=== PATIENT | male | born 1955 | race Caucasian/White ===

== ENCOUNTER 2017-08-17 11:23 | Outpatient (CLI) | payer OTHER ==
[~2017-08-17] VITALS: Ht 177.8 cm; Wt 102.3 kg
--- NOTE | ~2017-08-17 | HEMODYNAMI ---
PATIENT:CARLINE POPE JR MEDICAL RECORD: [id number] : 53 LOCATION:[facility] ADMISSION DATE: 08/17/17 Generatedon:08/17/201714:35 Patient name: CARLINE POPE Patient #: [id number] SSN: : 1955 Date of study: 08/17/2017 Page: Of Hemodynamic Procedure Report Patient Data Patient Demographics Procedure consent was obtained First Name: CARLINE Gender: Male Last Name: TOSHIA Suffix: [facility] Initial: CARMINE : 1955 Patient #: [id number] Age: 61 year(s) Race: Unknown Additional ID: [id number] Contact details Address: [address] [place] [address] State: [place] City: [facility] Zip code: [address] Past Medical History Allergies: No known allergies Admission Admission Data Admission Date: 08/17/2017 Admission Time: 11:23 Weight (lbs.): 232 Weight (kg.): 105.23 Lab Results Lab Result Date: 08/17/2017 Lab Result Time: 0:00 Biochemistry Name Units Result Min Max BUN mg/dl 15 --(--*-)-- 7 18 Creatinine mg/dl 1.1 --(--*-)-- 0.6 1.3 CBC Name Units Result Min Max Hemoglobin g/dl 13.4 -*(----)-- 13.5 17.5 Procedure Procedure Types Cath Procedure Diagnostic Procedure LHC LHC w/Coronaries Miscellaneous Procedures Moderate Sedation up to 30 minutes Procedure Description Procedure Date Procedure Date: 08/17/2017 Procedure Start Time: 14:16 Procedure End Time: 14:35 Procedure Staff Name Function Clarissa Anaya RT Monitor Amado Mora MD Performing Physician Jacob Brito RT Scrub Jay Calderón RN Nurse Procedure Data Cath Procedure Fluoroscopy Diagnostic fluoroscopy Total fluoroscopy Time: 4.5 time: 4.5 min min Diagnostic fluoroscopy Total fluoroscopy dose: 690 dose: 690 mGy mGy Contrast Material Contrast Material Type Amount (ml) Isovue 300 90 Entry Location Entry Primary Successful Side Size Upsize Upsize Entry Closure Succes sful Closure Location (Fr) 1 (Fr) 2 (Fr) Remarks Device Remarks Femoral Left 5 Fr Exoseal artery Estimated blood loss: 5 ml Diagnostic catheters Device Type Used For End Catheter Placement MULTIPACK JL 4.0 5Fr Procedure catheter DIAGNOSTIC AR MOD 5Fr Procedure Catheter ([id number]) DIAGNOSTIC IMT 5Fr Procedure Catheter ([id number]) MULTIPACK Pigtail 5 Fr Procedure catheter Procedure Complications No complications Procedure Medications Medication Administration Route Dosage 0.9% NaCl I.V. 100 ml/hr Oxygen NC 2 l/min Heparin Flush Bag added to field 2 bags (1000units/500ml NS) Lidocaine 2% added to field 20 Versed I.V. 1 mg Fentanyl I.V. 50 mcg Versed I.V. 1 mg Fentanyl I.V. 50 mcg Hemodynamics Rest HGB: 13.4 (g/dl) Heart Rate: 51 (bpm) Pressure Samples Time Site Value (mmHg) Purpose Heart Use Rate(bpm) 14:29 LV 115/1,8 Snapshot 57 14:29 AO 113/67(89) Pullback 56 14:29 LV 119/-4,11 Pullback 56 Gradients Valve Time Site 1 Site 2 Mean SEP/DFP Peak To Heart Use (mmHg) (sec/min) Peak Rate (mmHg) (bpm) Aortic 14:29 LV AO 9 18 6 56 119/-4,11 113/67(89) Calculations Valve P-P Mean Valve Index Valve Source Name Gradient Area Flow (cm2) Aortic 6 9 6 9 Snapshots Pre Cath Intra NCS Post Cath Vital Signs Time Heart Resp SPO2 etCO2 NIBP (mmHg) Rhythm Pain Sedation Rate (ipm) (%) (mmHg) Status Level (bpm) 13:56:06 52 15 100 35.2 122/78(95) NSR 0 (11) 10(A) , No pain 14:00:49 49 16 100 34.4 114/70(86) NSR 0 (11) 10(A) , No pain 14:05:27 50 16 100 40.5 113/73(91) NSR 0 (11) 10(A) , No pain 14:10:08 50 14 100 36.7 113/73(89) NSR 0 (11) 10(A) , No pain 14:14:49 49 14 99 36.7 118/70(91) NSR 0 (11) 10(A) , No pain 14:19:31 51 19 98 39 111/69(90) NSR 0 (11) 9(A) , No pain 14:24:10 50 19 99 15.2 117/83(109) NSR 0 (11) 9(A) , No pain 14:28:50 58 19 98 10.6 110/77(91) NSR 0 (11) 9(A) , No pain 14:33:29 56 18 99 41.3 112/77(91) NSR 0 (11) 9(A) , No pain Medications Time Medication Route Dose Verified Delivered Reason Notes Effe ctiveness by by 13:57:56 0.9% NaCl I.V. 100 Jay Jay Per ml/hr Kaitlynn Calderón physician RN RN 13:58:09 Oxygen NC 2 Jay Jay Per l/min Kaitlynn Calderón physician RN RN 13:58:22 Heparin Flush added 2 Jay Jay used for Bag to bags Lorigan Lorigan procedure (1000units/500ml field RN RN NS) 13:58:47 Lidocaine 2% added 20ml Jay Jay for local to vial Lorigan Lorigan anesthetic field RN RN 14:11:10 Versed I.V. 1 mg Jay Jay for Lorigan Lorigan sedation RN RN 14:11:21 Fentanyl I.V. 50 Jay Jay for mcg Lorigan Lorigan sedation RN RN 14:16:37 Versed I.V. 1 mg Jay Jay for Lorigan Lorigan sedation RN RN 14:16:44 Fentanyl I.V. 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 Start room use. 13:46:14 Patient Weight : 232 lbs 13:46:48 Time tracking: Regular hours 13:46:53 Plan of Care:Hemodynamics will remain stable., Cardiac rhythm will remain stable., Comfort level will be maintained., Respiratory function will remain adequate., Patient/ family verbilizes understanding of procedure., Procedure tolerated without complication., Recovers from procedure without complications.. 13:47:10 Patient received from Pre/Post Procedure Room to [facility] Alert and oriented. Eyalsferred to table in Supine position. 13:47:11 Warm blankets applied, and lauri hugger turned on for patient comfort. 13:47:11 Correct patient and procedure confirmed by team. 13:47:13 Signed procedure consent form obtained from patient. 13:47:13 ECG and BP/O2 sat monitors applied to patient. 13:47:37 H&P Date Dictated: 07/19/2017 Within 30 days and on chart., H&P Addendum completed by physician on day of procedure. (MUST COMPLETE FOR ALL OUTPATIENTS). 13:55:13 Vital chart was started 13:55:14 Baseline sample Acquired. 13:55:17 Rhythm: sinus bradycardia 13:55:18 Full Disclosure recording started 13:55:19 Pre-procedure instructions explained to patient. 13:55:20 Pre-op teaching completed and patient verbalized understanding. 13:55:21 Family in patients room. 13:55:22 Patient NPO since Midnight. 13:55:30 Patient allergic to No known allergies 13:55:31 Is the patient allergic to Iodine/contrast media? No. 13:55:34 Is patient on blood thinner?No 13:55:36 Patient diabetic? Yes. 13:55:37 If diabetic: On Metformin? Yes 13:55:39 If on Metformin: Last Dose? 08/15/2017 13:55:43 Previous problem with sedation/anesthesia? No ? 13:55:44 Snore? Yes 13:55:45 Sleep apnea? Yes 13:55:46 Deviated septum? No 13:55:47 Opens mouth fully? Yes 13:55:47 Sticks out tongue? Yes 13:55:50 Airway obstruction? No ? 13:55:54 Dentures? Yes IN TIGHT 13:55:58 Pre procedure: left dorsailis pedis pulse 2+ Normal; easily identifiable; not easily obliterated 13:56:02 Patient pain scale 0/10 ?. 13:56:16 IV patent on arrival in left forearm with 0.9% NaCl at [facility]. 13:56:22 Left groin area was prepped with chlora-prep and draped in sterile fashion 13:56:23 Alarms reviewed by R. N. 13:56:24 Sharps counted by scrub and verified by R.N. 13:57:56 0.9% NaCl 100 ml/hr I.V. was administered by Jay Calderón RN; Per physician; 13:58:09 Oxygen 2 l/min NC was administered by Jay Calderón RN; Per physician; 13:58:22 Heparin Flush Bag (1000units/500ml NS) 2 bags added to field was administered by Jay Calderón RN; used for procedure; 13:58:47 Lidocaine 2% 20ml vial added to field was administered by Jay Calderón RN; for local anesthetic; 14::57 --------ALL STOP TIME OUT------ :57 Final Timeout: patient, procedure, and site verified with staff and physician. All members of the team are in agreement. 14:08:59 Left groin site verified by team. 14:09:02 Physical assessment completed. ASA score P 2 - A patient with mild systemic disease as per Amado Mora MD. 14:09:05 Sedation plan: IV Moderate Sedation Medication:Versed, Fentanyl 14:09:37 Use device set Femoral Dx 14:09:38 ACIST Syringe (18548) opened to sterile field. 14:09:40 Bag Decanter (2002S) opened to sterile field. 14:09:41 ACIST Hand Control (85251) opened to sterile field. 14:09:41 ACIST Manifold (10661) opened to sterile field. 14:09:42 Tegaderm 4 x 4 (1626W) opened to sterile field. 14:09:44 Medline Cath Pack ([id number]) opened to sterile field. 14:09:45 SHEATH 5FR [place] (LHZ281) opened to sterile field. 14:09:45 DIAGNOSTIC WIRE .035 260cm J wire (426525) opened to sterile field. 14:09:47 DIAGNOSTIC Multipack 5Fr catheter set (MY6480) opened to sterile field. 14:09:47 PERCUTANEOUS ENTRY 19GA needle opened to sterile field. 14:11:10 Versed 1 mg I.V. was administered by Jay Calderón RN; for sedation; 14:11:21 Fentanyl 50 mcg I.V. was administered by Jay Calderón RN; for sedation; 14:15:22 Lab Result : BUN 15 mg/dl 14:15:22 Lab Result : Creatinine 1.1 mg/dl 14:15:22 Lab Result : Hemoglobin 13.4 g/dl 14:15:28 Lab results completed and on chart. 14:16:37 Versed 1 mg I.V. was administered by Jay Calderón RN; for sedation; 14:16:44 Fentanyl 50 mcg I.V. was administered by Jay Calderón RN; for sedation; 14:16:54 Procedure started. 14:16:58 Local anesthetic to left femerol artery with Lidocaine 2% by Amado Mora MD.INITIAL ACCESS ONLY 14:17:00 Zero performed for pressure channel P1 14:18:43 A 5 Fr sheath was inserted into the Left Femoral artery 14:19:10 A MULTIPACK JL 4.0 5Fr catheter was advanced over the wire and used for Procedure. 14:19:57 LCA angiography performed. 14:20:59 Catheter removed. 14:21:54 A DIAGNOSTIC AR MOD 5Fr Catheter ([id number]) was advanced over the wire and used for Procedure. 14:22:54 SVG to OM1 and OM2 angiography performed 14:23:16 RCA angiography performed. 14:23:28 Catheter removed. 14:24:22 A DIAGNOSTIC IMT 5Fr Catheter ([id number]) was advanced over the wire and used for Procedure. 14:27:13 KAUR to LAD angiography performed. 14:27:35 Catheter removed. 14:28:08 A MULTIPACK Pigtail 5 Fr catheter was advanced over the wire and used for Procedure. 14:28:48 LV gram done using BUCKNER 14:28:51 Injector settings: Ml/sec: 10, Volume: 20, 14:29:55 EF : 55 % 14:29:56 LV hemodynamics recorded. 14:31:08 Abdominal angiogram w/ runoff was performed. 14:31:17 Catheter removed. 14:31:20 EXOSEAL 5Fr (EX500) opened to sterile field. 14:31:34 Sheath removed intact; hemostasis achieved with Exoseal to the Left Femoral artery. 14:31:38 Procedure ended.(Physican Out) 14::48 Fluoroscopy time 04.50 minutes. 14::52 Fluoroscopy dose: 690 mGy 14:31:52 Flurop Dose total: 690 14:31:56 Contrast amount:Isovue 300 90ml. 14:34:06 Procedure and supply charges have been captured, reviewed, submitted and are correct. 14:34:08 Insertion/operative site no bleeding no hematoma. 14:34:10 Post-op/insertion site Right Femoral artery dressed using a 4 x 4 and Tegaderm. 14:34:15 Post right femoral artery:stable, soft, clean and dry 14:34:20 Post procedure: left dorsailis pedis pulse 2+ Normal; easily identifiable; not easily obliterated. 14:34:24 Post-procedure physical assessment completed. ASA score P 2 - A patient with mild systemic disease as per Amado Mora MD. 14:34:28 Post procedure rhythm: unchanged. 14:34:29 Estimated blood loss: 5 ml 14:34:31 Post procedure instruction explained to patient.Patient verbalizes understanding. 14:34:32 Patient needs reinforcement of post procedure teaching. 14:34:42 Procedure Complication : No complications 14:35:23 Vital chart was stopped 14:35:24 See physician's report for complete and final results. 14:35:26 Report given to Pre/Post Procedure Room. 14:35:29 Patient transfered to Pre/Post Procedure Room with Bed. 14:35:30 Procedure ended. 14:35:30 Full Disclosure recording stopped 14:35:33 End room use (Document Last) Device Usage Item Name Manufacture Quantity Catalog Number Hospital Part Current Mini mal Lot# / Charge Number Stock Stock Serial# Code ACIST Acist 1 55129 673428 689009 025848 20 Syringe Medical (67671) Systems Inc Bag Decanter Microtek 1 2001S 058917 48274 161922 5 (2001S) Medical Inc. ACIST Hand Acist 1 32582 239869 093386 898421 5 Control Medical (51552) Systems Inc ACIST Acist 1 13902 293698 459089 827802 5 Manifold Medical (16955) Systems Inc Tegaderm 4 x 3M 1 1626W 362624 815426 404728 5 4 (1626W) Medline Cath Cardinal 1 [id number] 235394 80517 260468 5 Pack Health ([id number]) SHEATH 5FR Terumo 1 KTL271 274747 288422 611764 40 Hudson (XXA704) DIAGNOSTIC [facility] 1 973035 748452 300479 834443 30 WIRE .035 260cm J wire (826884) DIAGNOSTIC Cardinal 1 CT7295 002545 48651 564764 30 [facility] 5Fr catheter set (KV9351) PERCUTANEOUS Cook Medical 1 R73438 898121 545639 5 ENTRY 19GA needle MULTIPACK JL Cardinal 1 743360 5 4.0 5Fr Health catheter DIAGNOSTIC Cardinal 1 [id number] 328051 684190 448431 15 AR MOD 5Fr Health Catheter ([id number]) DIAGNOSTIC [place] 1 [id number] 872614 212066 85895 5 IMT 5Fr Scientific Catheter ([id number]) MULTIPACK Cardinal 1 516014 5 Pigtail 5 Fr Health catheter EXOSEAL 5Fr Cardinal 1 EX500 398236 284068 980562 10 (EX500) Health Signature Audit [place] Stage Time Signature Unsigned Intra-Procedure 08/17/2017 Clarissa Anaya 2:35:51 PM RT(R) Signatures Monitor : Clarissa Anaya Signature : RT Date : Time : [id number] [place] [address]
[~2017-08-17 11:23] MED LIST: ASPIRIN81 MG PO; BENADRYL25 MG PO; BYSTOLIC5 MG PO; ESTER-C 500 MG1 TAB PO; GLUCOPHAGE850 MG PO; HYDROCHLOROTHIA25 MG PO; LIPITOR80 MG PO; NEXIUM40 MG PO; NORCO 10/325 TA1 TA1 PO; SALINE; WELLBUTRIN SR150 MG PO; [UNRECOGNIZED DRUG - OTHER] PO
[2017-08-17] MEDS ORDERED: CENTRUM SILVER1 TA1 PO (11:40)
[2017-08-17] MEDS ORDERED: PROTONIX40 MG PO (11:42)
[2017-08-17 11:49] VITALS: BP 131/81; Ht 177.8 cm; Wt 102.3 kg
[2017-08-17 12:15] LABS: BASOPHILS 0.6 % (0-2); EOSINOPHILS 3.1 % (0-7); HEMATOCRIT 40.3 % (42.0-54.0); HEMOGLOBIN 13.4 g/dL (13.5-17.5); IMMATURE GRANULOCYTES 0.2 % (0-5); LYMPHOCYTES 27.5 % (15-50); MCH 31.5 pg (26.0-34.0); MCHC 33.3 g/dL (31.0-37.0); MCV 94.8 fL (80.0-100.0); MEAN PLATELET VOLUME 10.5 fL (7.4-10.4); MONOCYTES 6.8 % (2-11); NEUTROPHILS 61.8 % (40-80); RBC 4.25 10x6/uL (4.20-6.10); RDW 12.5 % (11.5-14.5); WBC 8.8 10x3/uL (4.8-10.8)
[2017-08-17 12:17] LABS: PLATELET COUNT 218 10x3/uL (130-400)
[2017-08-17 12:26] LABS: CALCIUM 8.9 mg/dL (8.5-10.1); CARBON DIOXIDE 26.4 mmol/L (21.0-32.0); CREATININE - SERUM 1.1 mg/dL (0.6-1.3); POTASSIUM - SERUM 4.4 mmol/L (3.5-5.1)
== END 2017-08-17 17:02 | disposition home or self-care (01) ==
LOC: D.CATH 11:23
PROVIDERS: Internal Medicine Cardiovascular Disease
DX: I25.119 Atherosclerotic heart disease of native coronary artery with unspecified angina pectoris (principal); Z95.1 Presence of aortocoronary bypass graft; Z01.812 Encounter for preprocedural laboratory examination

== ENCOUNTER → 2018-10-16 12:43 | Outpatient (CLI) | payer OTHER ==
[2017-08-17 11:49] VITALS: BMI 32.3
[~2018-10-16 12:43] MED LIST changes: +CENTRUM SILVER1 TA1 PO; +PROTONIX40 MG PO
== END | disposition home or self-care (01) ==
LOC: D.HCCARDIO 12:43
PROVIDERS: ATTEND Internal Medicine Cardiovascular Disease
DX: I25.10 Atherosclerotic heart disease of native coronary artery without angina pectoris (principal)

== ENCOUNTER → 2019-10-16 12:31 | Outpatient (CLI) | payer MEDICARE, OTHER ==
[2017-08-17 11:49] VITALS: BMI 32.3
== END | disposition home or self-care (01) ==
LOC: D.HCCECHO 12:31
PROVIDERS: ATTEND Internal Medicine Cardiovascular Disease
DX: I25.10 Atherosclerotic heart disease of native coronary artery without angina pectoris (principal)

== ENCOUNTER → 2020-10-15 09:53 | Outpatient (CLI) | payer MEDICARE, OTHER ==
[2017-08-17 11:49] VITALS: BMI 32.3
== END | disposition home or self-care (01) ==
LOC: D.HCCECHO 09:30
PROVIDERS: ATTEND Internal Medicine Cardiovascular Disease
DX: I25.10 Atherosclerotic heart disease of native coronary artery without angina pectoris (principal)